=== PATIENT | male | born 1945 | race Caucasian/White ===

== ENCOUNTER → 2017-11-12 | Day surgery (SDC) | payer MEDICARE ==
[~2017-11-12] VITALS: Ht 162.6 cm; Wt 77.4 kg
[~2017-11-12] MED LIST: BUPIVACAINE/EPINEPHRINE 0.5% PF 30 ML VIAL ONE; CHLORHEXIDINE GLUCONATE 2 % 1 PACK (2 CLOTHS) TOPICAL PRN; GELFOAM SIZE 100 ONE; GENTAMICIN SULFATE 80 MG/2 ML VIAL ONE; HYDR-3583 PO; LACTATED RINGER'S 1000 ML IV PRN; LEVO75TA3 PO; METOPROLOL TARTRATE 25 MG TAB PO PRN; POVIDONE IODINE 5% (ANTISEPSIS KIT) 4 APPLICATIONS EACH NARE PRN; SODIUM CHLORID 0.9% 500 ML IV PRN; THROMBIN (TOPICAL) 5,000 UNIT VIAL ONE; ceFAZolin 2 GM/DEX PREMIX 50 ML IV SCH; methylPREDNISolone ACETATE 40 MG/ML VIAL ONE
[2017-11-12 13:03] VITALS: BP 136/85; PULSE 93; RESP 18; TEMP 98.5; O2SAT 95
--- NOTE | 2017-11-13 21:41 | EKG ---
Date Performed: 11/12/2017 Time Performed: 12:35:36 PTAGE: 72 years EKG: Sinus rhythm NORMAL ECG NO PREVIOUS TRACING DOCTOR: Felipa Gloria Interpretating Date/Time 11/13/2017 21:39:41
== END | disposition home or self-care (01) ==
LOC: HSDC 12:03
PROVIDERS: ATTEND Neurological Surgery
DX: M54.5 Low back pain (principal); Z01.810 Encounter for preprocedural cardiovascular examination; Z53.9 Procedure and treatment not carried out, unspecified reason
CPT/HCPCS: 93005; J1030; J1580